=== PATIENT | female | born 1970 | race Caucasian/White ===

== ENCOUNTER 2018-08-09 05:32 | Day surgery (SDC) | payer OTHER ==
[2018-08-09] MEDS: LACTATED RINGER'S 1,000 ML IV (06:37)
[2018-08-09] MEDS ORDERED: DESFLURANE 15 MIN (07:00)
[2018-08-09] MEDS ORDERED: CEFAZOLIN 2 GM/50 ML (PMX) 50 ML IVPB (07:00)
[2018-08-09] MEDS ORDERED: MIDAZOLAM 1 MG/ML 2 ML INJ (07:09)
[2018-08-09] MEDS ORDERED: FENTAnyl 50 MCG/ML VIAL (07:09)
[2018-08-09] MEDS ORDERED: PROPOFOL 20 ML (07:10)
[2018-08-09] MEDS ORDERED: CEFAZOLIN 1 GM INJ (07:10)
[2018-08-09] MEDS ORDERED: LIDOCAINE 2% (SDV) 5 ML INJ (07:10)
[2018-08-09] MEDS ORDERED: SUCCINYLCHOLINE CHLORIDE 100 MG/5 ML SYG IV (07:10)
[2018-08-09] MEDS ORDERED: ROCURONIUM 50 MG INJ (07:58)
[2018-08-09] MEDS ORDERED: METOCLOPRAMIDE 10 MG INJ (08:02)
[2018-08-09] MEDS ORDERED: DEXAMETHASONE 4 MG/ML 5 ML INJ (08:02)
[2018-08-09] MEDS ORDERED: ONDANSETRON 4 MG INJ (08:02)
[2018-08-09] MEDS ORDERED: FAMOTIDINE 20 MG INJ (08:03)
[2018-08-09] MEDS ORDERED: SUGAMMADEX SODIUM 200 MG/2 ML VIAL IV (08:05)
[2018-08-09] MEDS ORDERED: ONDANSETRON 4 MG INJ IV (08:30)
[2018-08-09] MEDS ORDERED: ALBUTEROL 0.083% (NEB) 2.5 MG/3 ML AMP HHN (08:30)
[2018-08-09] MEDS ORDERED: LABETALOL HCL 20MG INJ IV (08:30)
[2018-08-09] MEDS ORDERED: MEPERIDINE 25 MG INJ IV (08:30)
[2018-08-09] MEDS ORDERED: OXYCODONE/ACETAMINOPHEN (5/325) TAB PO ×2 (08:30)
[2018-08-09] MEDS ORDERED: FENTAnyl 50 MCG/ML VIAL IV ×3 (08:30)
== END 2018-08-09 11:28 | disposition home or self-care (01) ==
LOC: SDS 05:32
DX: N92.1 Excessive and frequent menstruation with irregular cycle (principal); D25.9 Leiomyoma of uterus, unspecified; E66.9 Obesity, unspecified; Z68.39 Body mass index [BMI] 39.0-39.9, adult
CPT/HCPCS: 58120; 88305; 93005